=== PATIENT | male | born 1945 | race Caucasian/White ===

== ENCOUNTER 2019-10-11 07:20 | Outpatient (RCR) | payer MEDICARE, SELFPAY ==
[2019-09-28 08:42] VITALS: BMI 43.9
== END 2019-12-27 23:59 | disposition home or self-care (01) ==
LOC: ANHWOC 07:20
PROVIDERS: PCP Internal Medicine; Visit Provider Internal Medicine
DX: L97.909 Non-pressure chronic ulcer of unspecified part of unspecified lower leg with unspecified severity (principal)
CPT/HCPCS: 99213; A9270; G0463

== ENCOUNTER 2020-01-09 07:26 | Outpatient (RCR) | payer MEDICARE, SELFPAY | END 2020-03-27 23:59 | disposition home or self-care (01) | LOC: ANHWOC 07:26 | PROVIDERS: PCP Internal Medicine; Visit Provider Internal Medicine | DX: L97.909 Non-pressure chronic ulcer of unspecified part of unspecified lower leg with unspecified severity (principal) | CPT/HCPCS: 99213; G0463 ==

== ENCOUNTER 2020-06-19 09:11 | Outpatient (RCR) | payer MEDICARE, SELFPAY | END 2020-08-27 23:59 | disposition home or self-care (01) | LOC: ANHWOC 09:11 | PROVIDERS: PCP Internal Medicine; Visit Provider Internal Medicine | DX: L97.909 Non-pressure chronic ulcer of unspecified part of unspecified lower leg with unspecified severity (principal) | CPT/HCPCS: 99212; G0463 ==

== ENCOUNTER 2020-08-30 08:03 | Outpatient (RCR) | payer MEDICARE, SELFPAY | END 2020-10-07 07:23 | disposition home or self-care (01) | LOC: ANHWOC 08:03 | PROVIDERS: PCP Internal Medicine; Visit Provider Internal Medicine | DX: L97.909 Non-pressure chronic ulcer of unspecified part of unspecified lower leg with unspecified severity (principal) | CPT/HCPCS: 99212; A9270; G0463 ==